=== PATIENT | female | born 1995 | race Asian ===

== ENCOUNTER 2018-09-27 19:21 | Emergency (ER) | payer MEDICAID ==
[~2018-09-27] VITALS: Ht 162.6 cm; Wt 102.5 kg
[2018-09-27 19:36] VITALS: BP 135/65
[2018-09-27] MEDS ORDERED: MAALOX/HYOSCYAMINE/LIDOCAINE 45 ML BTL ONE (21:23)
[2018-09-27] MEDS ORDERED: ONDANSETRON ODT 4 MG ONE (21:23)
[2018-09-27] MEDS ORDERED: ONDANSETRON ODT 4 MG PO ONE (21:30)
[2018-09-27] MEDS ORDERED: MAALOX/HYOSCYAMINE/LIDOCAINE 45 ML BTL PO ONE (21:30)
[2018-09-27 21:31] LABS: HCG UR SG 1.022 (1.003-1.030)
[2018-09-27 21:36] LABS: CULTURE INDICATED? YES; MICROSCOPIC INDICATED
== END 2018-09-27 23:40 | disposition home or self-care (01) ==
LOC: ED 22:40
DX: J20.8 Acute bronchitis due to other specified organisms (principal); R10.30 Lower abdominal pain, unspecified; R11.0 Nausea
CPT/HCPCS: 71046; 81001; 81025; 87081; 87086; 87880; 99284; Q0162